=== PATIENT | female | born 1990 | race Caucasian/White ===

== ENCOUNTER 2019-01-29 07:55 | Emergency (ER) | payer SELFPAY ==
--- NOTE | 2019-01-29 08:03 | PDOC ---
History of Present Illness - General Chief Complaint: Lightheaded Stated Complaint: DIZZINESS AND FALL - History of Present Illness Initial Comments: The pt is a 28F w/ a history of postural tachycardia syndrome who presents for evaluation of headache and dizziness 2 days after having a syncopal fall. The pt reports that the dizziness is common for her and there has not been a significant change in severity or frequency. She also reports a left sided [place] that has been waxing/waning since the time of the fall, is achy, non-radiating, was mildly alleviated by naproxen, and is not exacerbated by anything she can identify. She endorses associated nausea w/o vomiting. She denies fevers/chills, vision changes, chest pain, trouble breathing, changes in sensation/strength, dysuria, V/C/D 01/29/19 08:40 Past History - Past Medical History Allergies/Adverse Reactions: Allergies Allergy/AdvReac Type Severity Reaction Status Date / Time No Known Allergies Allergy Verified 01/29/19 07:59 Home Medications: Ambulatory Orders Gabapentin 400 mg PO PRN PRN 01/29/19 Zoloft 125 mg PO DAILY 01/29/19 traZODone HCL [Trazodone HCl] 100 mg PO DAILY 01/29/19 Review of Systems - Review of Systems Able to Perform ROS?: Yes Comments:: GENERAL/CONSTITUTIONAL: No fever or chills. No weakness HEAD, EYES, EARS, NOSE AND THROAT: No change in vision. No change in hearing. No sore throat CARDIOVASCULAR: No chest pain or shortness of breath RESPIRATORY: Denies cough, hemoptysis GASTROINTESTINAL: No nausea, vomiting, diarrhea or constipation GENITOURINARY: No dysuria, frequency, or change in urination MUSCULOSKELETAL: No joint or muscle swelling or pain. No neck or back pain SKIN: No rash NEUROLOGIC: No change in strength/sensation ENDOCRINE: No increased thirst. No abnormal weight change HEMATOLOGIC/LYMPHATIC: No anemia, easy bleeding, or history of blood clots ALLERGIC/IMMUNOLOGIC: No hives or skin allergy 01/29/19 08:02 Is the patient limited [place] proficient: No *Physical Exam - Vital Signs Vital Signs Period Temp Pulse Resp BP Sys/Pineda Pulse Ox Last 24 Hr 98.5 F 94-112 18 110-118/67-81 100 01/29/19 08:45 - Physical Exam Comments: GENERAL: Awake, alert, and oriented to person/place/time, in no acute distress HEAD: No signs of trauma, normocephalic, atraumatic EYES: PERRLA, EOMI, sclera anicteric, conjunctiva clear ENT: Hearing grossly normal, nares patent, oropharynx clear without exudates. Moist mucosa LUNGS: No distress, speaks in full sentences, clear to auscultation bilaterally HEART: Regular rate and rhythm, normal S1 and S2, no murmurs appreciated, peripheral pulses normal and equal bilaterally ABDOMEN: Soft, nontender, normoactive bowel sounds. No guarding, no rebound EXTREMITIES: Normal inspection, Normal range of motion, no edema. No clubbing or cyanosis NEUROLOGICAL: Cranial nerves II through XII grossly intact. Normal speech, normal gait, no focal sensorimotor deficits SKIN: Warm, Dry 01/29/19 08:02 ED Treatment Course - LABORATORY CBC & Chemistry Diagram: 01/29/19 08:54 01/29/19 08:54 Medical Decision Making - Medical Decision Making The pt is a 28F w/ a history of postural tachycardia syndrome who presents for evaluation of headache and dizziness 2 days after having a syncopal fall. ED Course CMP, CBC, Upreg IVF, Zofran, Tylenol for symptomatic relief 01/29/19 08:45 ECG w/ NSR; HR 74; QTc 457; No axis deviation; J-point elevation noted in V6 01/29/19 09:11 Lytes wnl No CRISTAL LFTs wnl No leukocytosis No anemia Upreg pending 01/29/19 10:01 Preg neg Pt feels improved at this time Plan for D/C w/ PCP f/u Discharge instructions and return precautions given Pt in agreement and verbalized understanding Dispo: home 01/29/19 10:15 Discharge - Discharge Information Problems reviewed: Yes Clinical Impression/Diagnosis: Dizziness, Nausea Headache Qualifiers: Headache type: unspecified Headache chronicity pattern: unspecified pattern Intractability: not intractable Qualified Code(s): R51 - Headache Condition: Stable Disposition: HOME - Admission No - Follow up/Referral Referrals: [facility] [place] [Provider Group] Ciera Harley MD [Staff Physician] - Shira Marino MD [Staff Physician] - - Patient Discharge Instructions Patient Printed Discharge Instructions: DI for Dizziness-Nonvertigo Additional Instructions: You were seen in the Emergency Department for evaluation of dizziness and fall 2 days ago. Your labs were unremarkable. Review the handout provided at discharge. Avoid contact sports and when transitioning from sitting to standing , do so slowly. A referral for primary care follow up was provided, follow up with them within a week. Return to the Emergency Department if you develop fevers/chills, chest pain, trouble breathing, nausea/vomiting, changes in sensation/strength, worsening symptoms, or any new/concerning symptoms. For pain you may take Tylenol 650mg every 6 hours and Ibuprofen 600mg every 6-8 hours, alternating them each time. - Post Discharge Activity
--- NOTE | 2019-01-29 08:08 | PDOC ---
Attending Attestation - Resident Resident Name: Nimesh Dennis - HPI HPI: 01/29/19 09:26 Pt presents to the ED complaining of diffuse headache after syncope two days ago. Headache is worsening. Denies neurologic symptoms. Denies nausea and vomiting. - Physicial Exam PE: 01/29/19 09:33 Agree with resident exam. Patient is alert and oriented x 3 and in no acute distress. Head: atraumatic. Cv:rrr no m/r/g Pulm: CTA b/l. Abdomen: soft, non tender, non distended, without guarding or rebound. Ext: multiple healing bruises on b/l forearms. 01/29/19 09:33 01/29/19 09:35 - Medical Decision Making 01/29/19 09:35 Pt presents to the ED complaining of diffuse headache after episode of syncope 2 days ago. Most likely concussion. No concerning signs or sx for intracranial bleed. Labs checked to rule out severe anemia or electrolyte disturbance and are negative. Will discharge home. 01/29/19 09:35
[2019-01-29 08:10] VITALS: BMI 30.2
[2019-01-29] MEDS ORDERED: SODIUM CHLORIDE 0.9% 500 ML INFUS.BAG IV ONE (08:34)
[2019-01-29] MEDS ORDERED: ONDANSETRON 4 MG/2 ML VIAL IVPUSH ONE (08:39)
[2019-01-29] MEDS ORDERED: ACETAMINOPHEN 325 MG TABLET (FP) PO ONE (08:39)
[2019-01-29] MEDS ORDERED: ACETAMINOPHEN 325 MG TABLET (FP) ONE (08:42)
[2019-01-29] MEDS ORDERED: ONDANSETRON 4 MG/2 ML VIAL ONE (08:42)
[2019-01-29 09:09] LABS: BASO % 0.4 % (0-2.0); EOS % 0.4 % (0-4.5); HEMATOCRIT 39.1 % (32.4-45.2); HEMOGLOBIN 13.2 GM/dL (10.7-15.3); MCH 30.6 pg (25.7-33.7); MCHC 33.8 g/dl (32.0-36.0); MEAN CELL VOLUME 90.6 fl (80-96); MEAN PLT VOLUME 8.1 fl (7.5-11.1); MONO % 7.7 % (3.8-10.2); NEUT % 54.5 % (42.8-82.8); PLATELET COUNT 207 K/MM3 (134-434); RBC 4.32 M/mm3 (3.60-5.2); RDW 12.9 % (11.6-15.6)
[2019-01-29 09:18] LABS: ALBUMIN 4.3 g/dl (3.4-5.0); BILIRUBIN,TOTAL 0.3 mg/dL (0.2-1); BLOOD UREA NITROGEN 13.5 mg/dL (7-18); CALCIUM 9.2 mg/dL (8.5-10.1); CREATININE 0.7 mg/dL (0.55-1.3); TOT PROT 6.8 g/dl (6.4-8.2)
[2019-01-29 10:27] VITALS: BP 118/72; PULSE 80; TEMP 97.9
--- NOTE | 2019-01-29 20:16 | EKG ---
Test Reason : Blood Pressure : / mmHG Vent. Rate : 074 BPM Atrial Rate : 074 BPM P-R Int : 178 ms QRS Dur : 086 ms QT Int : 412 ms P-R-T Axes : 060 044 030 degrees QTc Int : 457 ms NORMAL SINUS RHYTHM NORMAL ECG NO PREVIOUS ECGS AVAILABLE Confirmed by MD JENNIE, TAYA ([id number]) on 01/29/2019 8:15:55 PM Referred By: Confirmed By:TAYA SCHNEIDER MD
== END 2019-01-29 10:28 | disposition home or self-care (01) ==
LOC: JER 07:55
PROC: 3E033GC Introduction of Other Therapeutic Substance into Peripheral Vein, Percutaneous Approach (ICD-10-PCS; principal; 2019-01-29)
DX: R51 Headache (principal); R42 Dizziness and giddiness; R11.0 Nausea; I49.8 Other specified cardiac arrhythmias
CPT/HCPCS: 36415; 80053; 84703; 85025; 93005; 93010; 99283-25